=== PATIENT | female | born 1990 | race Caucasian/White ===

== ENCOUNTER 2019-07-08 16:40 | Emergency (ER) | payer SELFPAY ==
[2019-07-08] MEDS ORDERED: NORCO 5/325 MG PO ONE (17:01)
[2019-07-08] MEDS ORDERED: NORCO 5/325 MG ONE (17:03)
--- NOTE | 2019-07-08 17:03 | ERPHSYRPT ---
- History of Present Illness Time Seen by Provider: 07/08/19 16:45 Source: patient, other () Exam Limitations: no limitations Physician History: The patient is a 29-year-old [id number] female who presents with a chief complaint of left elbow pain. she reportedly was walking through a parking lot when she slipped on some ice and impacted the left elbow on the pavement resulted in injury. Onset reportedly was about an hour prior to arrival. The pain is described as a sharp pain to the burning pain primarily located to the olecranon aspect of her elbow that is nonradiating constant in report is worse over the last hour. the pain is now moderate to severe in severity however she states that she can flex and extend the affected elbow with pain but without really any decrease in range of motion. She denies any additional injuries, specifically head injury, neck pain and reported as not taking anticoagulants. She has not taken anything for pain prior to arrival. Method of Injury: fell Extremities Pain Location: elbow: left Allergies/Adverse Reactions: No Known Drug Allergies Allergy (Verified 07/08/19 16:46) Home Medications: No Home Meds [No Home Meds] 1 ea UD 05/23/16 [History] Hx Tetanus, Diphtheria Vaccination/Date Given: Yes Hx Influenza Vaccination/Date Given: No Hx Pneumococcal Vaccination/Date Given: No - Review of Systems Constitutional: No Symptoms Musculoskeletal: Other (Left elbow pain) Skin: Other (Abrasion, left elbow) All Other Systems: Reviewed and Negative - Past Medical History Pertinent Past Medical History: No - Past Surgical History Past Surgical History: Yes Female Surgical History: Section - Social History Smoking Status: Never smoker Exposure to second hand smoke: No Drug Use: none Patient Lives Alone: No - Nursing Vital Signs Nursing Vital Signs: Initial Vital Signs Temperature 98.2 F 07/08/19 16:49 Pulse Rate 104 H 07/08/19 16:49 Respiratory Rate 20 07/08/19 16:49 Blood Pressure 160/101 07/08/19 16:49 O2 Sat by Pulse Oximetry 100 07/08/19 16:49 Pain Scale Pain Intensity 6 - Physical Exam General Appearance: mild distress Neck Exam: normal inspection Cardiovascular/Respiratory Exam: chest non-tender, normal breath sounds, regular rate/rhythm, heart sounds normal Abdominal Exam: non-tender Shoulder Exam: normal inspection, No non-tender, No no evidence of injury, No normal ROM, No asymmetry, No bone tenderness, No deformity, No ecchymosis, No limited ROM, No pain Elbow/Forearm Exam: normal ROM, abrasions (Tenderness with no deformity, crepitus, or step-off noted to the olecranon aspect of the L elbow. Small superficial abrasion noted over the olecranon aspect of the L elbow. Full active and passive ROM to the L elbow), bone tenderness, pain, soft tissue tenderness, swelling, No asymmetry, No deformity, No limited ROM Wrist Exam: normal inspection, No no evidence of injury, No pain Hand Exam: normal inspection, normal ROM (Motor function intact in the L hand in the ulnar, medial, and radial nerve distribution), No no evidence of injury, No limited ROM, No swelling Neuro/Tendon Exam: No normal sensation (Patient endorsed decreased sensation to the radial, ulnar, and median nerve distribution in the L hand compared to the right hand.) Mental Status Exam: alert, oriented x 3, cooperative Skin Exam: abrasion (Superficial abrasion noted to the L elbow) SpO2 Interpretation: normal O2 Delivery: Room Air Procedures - Splinting Location of Splint: Left, Elbow Type of Splint: Other (Sling) Splint Applied By: ED Nurse Pre-Proc Neuro Vasc Exam: abnormal (Decreased sensation in the ulnar, medial, and radial nerve distribution) Post-Proc Neuro Vasc Exam: abnormal (Decreased sensation to gross touch in the radial, median, and ulnar nerve distribution), unchanged from pre-exam - Radiology Exams Elbow X-ray Interpretation: Interpreted by me, Reviewed by me, No Fracture, No Subluxation (No fracture or dislocation) Ordered Tests: Active Orders 24 hr Category Date Time Status Sling Application STAT Care 07/08/19 17:35 Active ELBOW (2 VIEW) Stat Exams 07/08/19 17:27 Taken Medication Summary Discontinued Medications Generic Name Dose Route Start Last Admin Trade Name Frehermes PRN Reason Stop Dose Admin Hydrocodone Bitart/Acetaminophen 2 tab 07/08/19 17:01 07/08/19 17:04 H[place]atha 5/325 Mg PO 07/08/19 17:02 2 tab ONCE ONE Administration Hydrocodone Bitart/Acetaminophen Confirm 07/08/19 17:03 [place] 5/325 Mg Administered 07/08/19 17:04 Dose 2 tab .ROUTE .STK-MED ONE - Progress Progress: improved Counseled pt/family regarding: need for follow-up (f/u with the [facility]) - Departure Departure Disposition: Home (Left elbow contusion) Clinical Impression: Sprain of left elbow, Left elbow contusion, Abrasion of left elbow Condition: Stable Critical Care Time: No Referrals: DOCTOR,NO FAMILY [Primary Care Provider] - (Please follow the [facility] between 8 and 10 AM. the number to the clinic is ) Instructions: Elbow Sprain (DC) Plan of Treatment: nontoxic in appearance. The patient presents with a complaint of left elbow pain after a mechanical fall. Differential initially included fracture, dislocation, contusion elbow sprain. My suspicion for fracture and dislocation as well given the patient's exam however x-ray was obtained to rule this out and ultimately showed no obvious fracture dislocation. Currently awaiting formal radiology review and the patient was made aware that if there were any discrepanciesa radiology standpoint she would be contacted. She was provided a sling for comfort. I suspect the numbness in her left hand may be secondary to neuropraxia given the mechanism of injury. She has strong radial pulses and capillary toes brisk and the left hand and my suspicion for a vascular catastrophe as well this time. Ultimately, she was discharged with instructions to followup with the orthopedic clinic as soon as possible and to take H[place] as needed for pain. She was also instructed to take naproxen scheduled over the next 5 days for pain. She agreed with verbally understood the discharge plan. Prescriptions: Hydrocodone/Acetaminophen [Hydrocodone-Acetamin 5-325 mg] 1 - 2 each PO Q6- 8HPRN PRN 3 Days #16 tablet MDD 8 PRN Reason: Pain Naproxen 500 mg [Naprosyn 500 MG] 500 mg PO BID 5 Days #10 tablet
[2019-07-08 17:55] VITALS: BP 148/82; PULSE 76; O2SAT 99
--- NOTE | 2019-07-09 08:43 | XRAY ---
Indication: Pain following fall. Comparison: None 2 views of the left elbow obtained. No bony, articular, or soft tissue abnormalities.
== END 2019-07-08 18:31 | disposition home or self-care (01) ==
LOC: ED 16:40
DX: S53.402A Unspecified sprain of left elbow, initial encounter (principal); S50.02XA Contusion of left elbow, initial encounter; S50.312A Abrasion of left elbow, initial encounter; W00.0XXA Fall on same level due to ice and snow, initial encounter; Y93.01 Activity, walking, marching and hiking; Y92.481 Parking lot as the place of occurrence of the external cause
CPT/HCPCS: 73070; 99283; A9270-GY

== ENCOUNTER 2024-03-31 20:26 | Emergency (ER) | payer OTHER ==
[2024-03-31 21:32] VITALS: RESP 18; TEMP 98
[2024-03-31] MEDS ORDERED: BACIGUENT PACKET ONE (21:34)
[2024-03-31] MEDS ORDERED: Augmentin 875-125 Tablet ONE (22:09)
--- NOTE | 2024-03-31 22:10 | ERPHSYRPT ---
- History of Present Illness Time Seen by Provider: 03/31/24 21:50 Source: patient Exam Limitations: no limitations Patient Subjective Stated Complaint: pt reports she accidentally shut her cat's tail in the door causing it to scracth and bite her on both legs. pt reports cat began as a stray and is not vaccinated per her knowledge. Triage Nursing Assessment: pt is aox3, afebrile, resps easy and non labored, cap refill < 3 seconds, radial pulses strong and equal. pt skin pink warm dry. pt with scratches to biltateral lower extremities, bleeding is controlled at this time. Timing/Duration: today Severity: mild Associated Symptoms: denies symptoms Allergies/Adverse Reactions: No Known Drug Allergies Allergy (Verified 07/08/19 16:46) Home Medications: No Home Meds [No Home Meds] 1 ea UD 05/23/16 [History] Hx Tetanus, Diphtheria Vaccination/Date Given: No (unk) Hx Influenza Vaccination/Date Given: No Hx Pneumococcal Vaccination/Date Given: No Immunizations Up to Date: Yes Travel Risk - International Travel If Yes, where;: N - Emerging Infectious Disease Are you exhibiting symptoms associated with any current EIDs: No - Review of Systems Eyes: No Symptoms Ears, Nose, & Throat: No Symptoms Respiratory: No Symptoms Cardiac: No Symptoms Abdominal/Gastrointestinal: No Symptoms Genitourinary Symptoms: No Symptoms Musculoskeletal: No Symptoms Skin: No Symptoms, Other (Patient has cat scratches to the right thigh right leg and left lateral leg) Neurological: No Symptoms - Past Medical History Pertinent Past Medical History: No Neurological History: No Pertinent History ENT History: No Pertinent History Cardiac History: No Pertinent History Respiratory History: No Pertinent History Endocrine Medical History: No Pertinent History Musculoskeletal History: No Pertinent History GI Medical History: No Pertinent History History: No Pertinent History Psycho-Social History: No Pertinent History Female Reproductive Disorders: No Pertinent History Other Medical History: See medical chart - Past Surgical History Past Surgical History: Yes Neuro Surgical History: No Pertinent History Cardiac: No Pertinent History Respiratory: No Pertinent History Gastrointestinal: No Pertinent History Genitourinary: No Pertinent History Musculoskeletal: No Pertinent History Female Surgical History: Section Other Surgical History: tendon repair left arm - Female History Hx Last Menstrual Period: 03/10/24 Hx Now: No - Social History Smoking Status: Never smoker Exposure to second hand smoke: No Drug Use: none Patient Lives Alone: No - Social Determinants of Health Will the patient participate in the screening: Yes Do you worry about a steady place to live?: No Do you have any problems with any of the following?: No known problems In the past 12 months,have you had to go without utilities?: No Transportation Issues: No Has anyone in your support network made you feel unsafe?: No Have you or anyone in your house had to go without enough: No - Nursing Vital Signs Nursing Vital Signs: Initial Vital Signs Temperature 98 F 03/31/24 21:22 Pulse Rate 104 H 03/31/24 21:22 Respiratory Rate 18 03/31/24 21:22 Blood Pressure 173/99 03/31/24 21:22 O2 Sat by Pulse Oximetry 99 03/31/24 21:22 Pain Scale Pain Intensity 2 - Physical Exam General Appearance: no apparent distress Eye Exam: PERRL/EOMI Ears, Nose, Throat Exam: normal ENT inspection Respiratory Exam: normal breath sounds Cardiovascular Exam: regular rate/rhythm Extremity Exam: other (There are abrasions to the right thigh and right leg and puncture wounds to the right leg, there are small abrasions and puncture wounds to the left leg laterally) SpO2: 99 Ordered Tests: Medication Summary Discontinued Medications Generic Name Dose Route Start Last Admin Trade Name Justin PRN Reason Stop Dose Admin Bacitracin Zinc Confirm 03/31/24 21:34 Bacitracin Packet 1 Each Pckt Administered 03/31/24 21:35 Dose 1 each .ROUTE .ST-MED ONE - Progress Progress Note: Patient states that she was accidentally scratched by the neighborhood cat whose tail was trapped in her door, wounds were cleansed and she will be given Augmentin and a Tdap booster. She will be discharged home with wound care precautions and discharged home with Augmentin. She was offered rabies however deferred at this time she was informed of the need to follow-up with a primary care provider and return to the ER if she were to get worse 03/31/24 22:06 - Departure Clinical Impression: Cat scratch, Cat bite involving extremity Condition: Stable Critical Care Time: No Referrals: BREANN MINOR MD [Primary Care Provider] - Follow up/PCP as directed Prescriptions: Amox Tr/Potass Clav. 875 mg [Augmentin 875-125 Tablet] 1 each PO BID 8 Days #16 tablet
[2024-03-31] MEDS: Augmentin 875-125 Tablet PO ONE (22:11)
[2024-03-31] MEDS ORDERED: Adacel Vial IM ONE (22:13)
[2024-03-31] MEDS: TENIVAC VIAL IM ONE (22:15)
[2024-03-31] MEDS: Adacel Vial IM ONE (22:16)
[2024-03-31 22:30] VITALS: BP 158/78; PULSE 88; O2SAT 100
== END 2024-03-31 22:29 | disposition home or self-care (01) ==
LOC: ED 20:26
DX: S80.871A Other superficial bite, right lower leg, initial encounter (principal); S80.872A Other superficial bite, left lower leg, initial encounter; W55.01XA Bitten by cat, initial encounter; S80.812A Abrasion, left lower leg, initial encounter; S80.811A Abrasion, right lower leg, initial encounter; W55.03XA Scratched by cat, initial encounter; Z79.899 Other long term (current) drug therapy; Z23 Encounter for immunization
CPT/HCPCS: 90471; 90715; 99282; A9270-GY